=== PATIENT | male | born 1995 | race African-American/Black ===

== ENCOUNTER 2017-07-12 17:30 | Emergency (ER) | payer OTHER ==
[~2017-07-12] VITALS: Ht 172.7 cm; Wt 77.6 kg
[2017-07-12 21:34] VITALS: BP 128/70
== END 2017-07-12 21:34 | disposition home or self-care (01) ==
LOC: EXP 17:30 → EME 17:30 → EXP 21:34
PROC: 0HQDXZZ Repair Right Lower Arm Skin, External Approach (ICD-10-PCS; principal; 2017-07-12)
DX: S51.011A Laceration without foreign body of right elbow, initial encounter (principal); W25.XXXA Contact with sharp glass, initial encounter
CPT/HCPCS: 73080; 99281; 99284